=== PATIENT | female | born 1980 | race Two or more races ===

== ENCOUNTER 2016-11-08 21:33 | Emergency (ER) | payer OTHER ==
[~2016-11-08] VITALS: Ht 172.7 cm; Wt 86.2 kg
[2016-11-08] MEDS ORDERED: IV NORMAL SALINE 1000 ML BAG IV ONE (22:15)
[2016-11-08 22:40] LABS: *BILIRUBIN,URIN NEGATIVE (NEGATIVE); *BLOOD, URINE 3+ (NEGATIVE); *CLARITY,URINE SLIGHTLY CLOUDY (CLEAR); *COLOR,URINE YELLOW (YELLOW); *KETONES,URINE NEGATIVE (NEGATIVE); *PROTEIN,URINE NEGATIVE (NEGATIVE); *UROBILINOGEN,URINE 0.2 E.U./dl (NORMAL); LEUKOCYTE ESTERASE ,URINE NEGATIVE (NEGATIVE); NITRITE, URINE NEGATIVE (NEGATIVE); UGLUCOSE NEGATIVE (NEGATIVE)
[2016-11-08 22:44] LABS: BASOPHILS # (AUTO) 0.1 K/uL (0.0-8.0); BASOPHILS % (AUTO) 1.1 % (0.0-2.0); EOSINOPHILS # (AUTO) 0.1 K/uL (0.0-0.7); EOSINOPHILS % (AUTO) 0.9 % (0.0-7.0); HEMATOCRIT 38.2 % (37-47); HEMOGLOBIN 13.5 G/DL (12.0-16.0); LYMPHOCYTES # (AUTO) 0.3 K/UL (0.8-4.8); LYMPHOCYTES % (AUTO) 4.3 % (20.5-51.5); MEAN CORPUSCULAR HEMOGLOBIN 29.7 UUG (27.0-31.0); MEAN CORPUSCULAR HGB CONC 35 g/dL (32.0-37.0); MONOCYTES # (AUTO) 0.4 K/UL (0.1-1.30); MONOCYTES % (AUTO) 6.5 % (0.0-11.0); NEUTROPHILS # (AUTO) 5.3 K/UL (1.8-8.9); NEUTROPHILS % (AUTO) 87.2 % (38.5-71.5); PLATELET COUNT (AUTO) 146 K/UL (150-450); RED BLOOD CELL COUNT(AUTO) 4.55 MIL/UL (4.2-5.4); WHITE BLOOD COUNT (AUTO) 6.2 K/UL (4.0-11.2)
[2016-11-08 22:49] LABS: *URINE HCG, QUAL NEGATIVE (NEGATIVE); BACTERIA,URINE FEW /HPF (NONE SEEN); POTASSIUM 3.4 mmol/L (3.5-5.1); RBC,URINE 50-80 /HPF (0-3); SQUAMOUS EPITHELIAL CELL,UR MODERATE /HPF (NONE SEEN); WBC,URINE 0-3 /HPF (0-3)
[2016-11-08] MEDS ORDERED: AZITHROMYCIN 250 MG TABLET PO ONE (23:00)
[2016-11-08] MEDS ORDERED: KETOROLAC TROMETHAMINE 30 MG INJ IVP ONE (23:00)
[2016-11-08 23:04] LABS: BILIRUBIN,DIRECT 0.2 mg/dL (0.0-0.2); BILIRUBIN,TOTAL 1.2 mg/dL (0.2-1.0); TOTAL PROTEIN, SERUM 7.3 g/dL (6.4-8.2)
[2016-11-08] MEDS ORDERED: AZITHROMYCIN 250 MG TABLET ONE (23:13)
[2016-11-08] MEDS ORDERED: KETOROLAC TROMETHAMINE 30 MG INJ ONE (23:13)
[2016-11-08 23:53] VITALS: BP 123/73
--- NOTE | 2016-11-08 23:53 | NUR ---
Patient discharged to home in stable conditon. Written and verbal after care instructions given. Patient verbalizes understanding of instructions.
== END 2016-11-08 23:54 | disposition home or self-care (01) ==
LOC: ER 21:34
DX: J15.7 Pneumonia due to Mycoplasma pneumoniae (principal); M54.5 Low back pain
CPT/HCPCS: 36415; 70030-TC; 71010; 83605; 84703; 85025; 85730; 87040; 87077; 87086; A4663; J1885; J7030; Q0144

== ENCOUNTER 2018-04-12 10:06 | Emergency (ER) | payer OTHER ==
[~2018-04-12] VITALS: Ht 172.7 cm; Wt 86.2 kg
--- NOTE | 2018-04-12 10:19 | NUR ---
is at bedside doing the MSE.
[2018-04-12] MEDS ORDERED: IBUPROFEN 800 MG TABLET PO ONE (10:30)
--- NOTE | 2018-04-12 10:53 | NUR ---
Patient discharged to home in stable conditon. Written and verbal after care instructions given to patient and spouse in [facility] by ABEL Francois. Patient and family verbalized understanding of instructions.
[2018-04-12] MEDS ORDERED: IBUPROFEN 800 MG TABLET ONE (11:25)
== END 2018-04-12 10:54 | disposition home or self-care (01) ==
LOC: ER 10:06
DX: S93.601A Unspecified sprain of right foot, initial encounter (principal); X50.1XXA Overexertion from prolonged static or awkward postures, initial encounter; Y93.89 Activity, other specified; Y92.89 Other specified places as the place of occurrence of the external cause; Y99.8 Other external cause status
CPT/HCPCS: 73630; A4663